=== PATIENT | male | born 1990 | race African-American/Black ===

== ENCOUNTER 2025-11-05 18:59 | Emergency (ER) | payer BC, SELFPAY ==
[2025-11-05 19:05] VITALS: BP 155/101
[2025-11-05 20:35] LABS: Urine Character Slightly Cloudy (Clear)
[2025-11-05 21:20] LABS: Urine Squamous Cell 0-2 /LPF (Few)
[2025-11-05 21:21] LABS: Urine Red Blood Cell 0-2 /HPF (0-2)
--- NOTE | 2025-11-05 22:12 | ED.GENMED ---
History of Present Illness
General
Chief Complaint: Male Genito-Urinary Symptoms
Source: patient
Exam Limitations: none
Time Seen by Provider: 11/05/25 20:40
Nursing documentation reviewed up to this point in time: agreed with
History of Present Illness
History of Present Illness:
Patient to the emergency department with complaint of burning with urination. Symptoms started approximately 3 days ago. He notes some penile discharge also. He is not sexually active. States partner is not having any symptoms. Brought self to
the emergency department for evaluation. He denies any fever or chills, nausea, vomiting, diarrhea.
Past History
Past History
ED Past Medical History: None
Review of Systems
Review of Systems
Allergies reviewed?: Yes
All Other Systems: ROS reviewed and negative except as documented in HPI and ROS
Constitutional: Reports no symptoms
EENT: Reports no symptoms
Respiratory: Reports no symptoms
Cardiac: Reports no symptoms
ABD/GI: Reports no symptoms
: Reports dysuria and discharge
Musculoskeletal: Reports no symptoms
Skin: Reports no symptoms
Neurological: Reports no symptoms
Psychiatric: Reports no symptoms
Phy Exam
General Physical Exam
General Presentation: well appearing and no apparent distress
General age: appears stated age
General Skin: warm and dry
General Habitus: normal
General Mental: alert
Gastrointestinal Exam
Gastrointestinal Exam: normal bowel sounds, non tender, soft, no organomegaly and non distended
Musculoskeletal Exam
Musculoskeletal Exam: full ROM
Skin Exam
Skin Exam: normal color, warm/dry and no rash
Psychiatric Exam
Psychiatric Exam: normal mood/affect
Course
Orders/Labs/Results
Orders:
Orders
11/05/25 20:25
Urinalysis Reflex To Culture Urgent
Date Specimen was Collected: 11/05/25
Time Specimen was Collected: 20:00
Urine Microscopic Reflex Cult Urgent
Chlamydia/GC by PCR Urgent
SHIRAZ Source: Urine
Specimen Description:
Source:: URINE
Date Specimen was Collected: 11/05/25
Time Specimen was Collected: 21:28
Urine Culture Urgent
SHIRAZ Source: U
Specimen Description:
Date Specimen was Collected: 11/05/25
Time Specimen was Collected: 20:00
11/05/25 21:24
Add On- LAB Urgent
Tests Added?: GC/Chlamydia - urine
11/05/25 21:28
Ceftriaxone Sodium [Rocephin] 500 mg IM NOW STA
Doxycycline [Vibramycin] 100 mg PO NOW STA
Abnormal Lab Results
11/05/25
20:25
Urine Ketones 3+ A
(Negative)
Urine Bilirubin 1+ A
(Negative)
Urine Urobilinogen 2+ A
(Neg - 1+)
Leukocyte Esterase Rfl 1+ A
(Negative)
Urine WBC (Reflex) 11-15 A /HPF
(0-5)
Urine Bacteria (Reflex) Moderate A
(Negative)
Urine Albumin (Reflex) 3+ A
(Neg - Trace)
Vital Signs
Initial and Last Documented VS:
Initial Vital Signs
Temp Pulse Resp BP Pulse Ox
98.5 F 124 18 155/101 100
11/05/25 19:05 11/05/25 19:05 11/05/25 19:05 11/05/25 19:05 11/05/25 19:05
Last Documented Vital Signs
Temp Pulse Resp BP Pulse Ox
98.5 F 124 18 155/101 100
11/05/25 19:05 11/05/25 19:05 11/05/25 19:05 11/05/25 19:05 11/05/25 19:05
*Pulse Oximetry
SaO2: 100
Oxygen Mode of Delivery: Room air
Patient hypoxic: no
*Critical Care Note
Total Time (30-74mins, 75-104mins- exclusive of procedures): Not Applicable
Update Note
Update Note:
Patient to the emergency department with complaint of burning with urination, penile discharge. Symptoms started approximately 3 days ago. UA results reviewed. +1 leukocytes 11-15 WBCs 0-2 squamous cells moderate bacteria noted. Due to report of
penile discharge, will give a dose of ceftriaxone in department. Given Rx for doxycycline 100 mg twice daily. Urine culture for GC chlamydia sent, results are pending. He will be discharged home. He was given instructions on signs and symptoms
to return to the emergency department and he is agreeable to this plan.
ED Attending Note
-
Portions of this chart may have been created with voice recognition software.� Occasional wrong word or��sound alike� substitutions may have occurred due to the inherent limitations of voice recognition software.
Discharge Plan
Departure
Patient Disposition: Home (Routine Discharge)
Date of Disposition: 11/05/25
Time of Disposition: 21:28
Patient with high blood pressure during this ER visit?: No
Condition: Good
Covid-19: Not Applicable
Discharge Problem:
UTI (urinary tract infection)
Instructions: Urinary tract infections in adults
Prescriptions:
New
doxycycline hyclate 100 mg capsule
100 mg PO BID Qty: 14 0RF
Referrals:
UNKNOWN - PT DOES,NOT KNOW [Family Provider]
Activity Restrictions/Additional Instructions:
Return to the emergency department for any changes in/worsening of your symptoms.
Interventions
Interventions:
*General Assessment Last Done: 11/05/25 21:45
*Neglect/Abuse Screening Last Done: 11/05/25 19:05
*ED COVID-19 Vaccine History Last Done: 11/05/25 21:45
*ED Influenza Vaccine History Last Done: 11/05/25 21:45
[facility] Risk Assessment Tool Last Done: 11/05/25 19:00
*Risk Screen - Suicide (C-SSRS) Last Done: 11/05/25 19:05
*Nursing Disposition Last Done: 11/05/25 22:36
ED-Male Genitourinary Assessment Last Done: 11/05/25 20:17
Discharge Date and Time
Discharge Date/Time: 11/05/25 22:38
Print Language: GRENADIAN
== END 2025-11-05 22:38 | disposition home or self-care (01) ==
LOC: EMR 18:59
PROVIDERS: Emergency Medicine; EMERGENCY PHYSICIAN Emergency Medicine
DX: N39.0 Urinary tract infection, site not specified (principal)
CPT/HCPCS: 99283; 81003; 81015; 87086; 87491; 87591

== ENCOUNTER 2025-11-06 02:54 | Emergency (ER) | payer SELFPAY ==
[2025-11-06 03:07] VITALS: BP 124/91
--- NOTE | 2025-11-06 03:09 | EDRN ---
Pt changing into paper scrubs and belongings being secured by security
--- NOTE | 2025-11-06 04:01 | ED.GENMED ---
History of Present Illness
General
Chief Complaint: Psychiatric Problem
Source: patient
Exam Limitations: none
Time Seen by Provider: 11/06/25 02:56
Nursing documentation reviewed up to this point in time: agreed with
History of Present Illness
History of Present Illness:
35-year-old male via EMS, for anxiety, for psychiatric evaluation lives in [facility] works at [employer] seen in the ER earlier today diagnosed with a UTI given antibiotics apparently left second visit was found outside brought here here he he
feels some anxiety not suicidal, states he would like to go to work in the morning,
Past History
Past History
ED Past Medical History: None
Phy Exam
Physical Exam
Physical Exam:
Physical Exam
General: Patient calm cooperative
Neck: No jaundice
Lungs: no acute respiratory distress.
Neuro: alert and oriented. no focal neurological deficits
Skin: no rash
Psychiatric: Calm cooperative not suicidal not hallucinating
Extremities: No cyanosis
Course
Orders/Labs/Results
Orders:
Orders
11/06/25 03:03
Crisis Consult Urgent
Reason for Consult: pt here due to 'manic episode' per pt
Vital Signs
Initial and Last Documented VS:
Initial Vital Signs
Temp Pulse Resp BP Pulse Ox
97.5 F 69 16 124/91 98
11/06/25 03:07 11/06/25 03:07 11/06/25 03:07 11/06/25 03:07 11/06/25 03:07
Last Documented Vital Signs
Temp Pulse Resp BP Pulse Ox
97.5 F 69 16 124/91 98
11/06/25 03:07 11/06/25 03:07 11/06/25 03:07 11/06/25 03:07 11/06/25 04:02
MDM/Problems Addressed
Differential Diagnosis Includes:
Mental illness social stressors
MDM/Problems Addressed:
Not homicidal not suicidal not hallucinating
Chronic conditions affecting care: Psychiatric illness
Acute Exacerbation and/or Progression of Chronic Illness: Psychiatric illness
*Pulse Oximetry
SaO2: 98
Oxygen Mode of Delivery: Room air
Patient hypoxic: no
*Critical Care Note
Total Time (30-74mins, 75-104mins- exclusive of procedures): Not Applicable
Update Note
Update Note:
Update patient no acute distress seen by crisis
ED Attending Note
-
Portions of this chart may have been created with voice recognition software.� Occasional wrong word or��sound alike� substitutions may have occurred due to the inherent limitations of voice recognition software.
Discharge Plan
Departure
Patient Disposition: Home (Routine Discharge)
Date of Disposition: 11/06/25
Time of Disposition: 04:21
Patient with high blood pressure during this ER visit?: No
Discharge Problem:
Anxiety
Instructions: Generalized Anxiety Disorder (DC)
Prescriptions:
No Action
doxycycline hyclate 100 mg capsule
100 mg PO BID Qty: 14 0RF
Interventions
Interventions:
*General Assessment Last Done: 11/06/25 02:57
*Neglect/Abuse Screening Last Done: 11/06/25 02:57
*ED COVID-19 Vaccine History Last Done: 11/06/25 02:57
*ED Influenza Vaccine History Last Done: 11/06/25 02:57
[facility] Fall Risk Assessment Tool Last Done: 11/06/25 03:05
*Risk Screen - Suicide (C-SSRS) Last Done: 11/06/25 02:57
Discharge Date and Time
Print Language: CHINESE
[2025-11-06 06:26] VITALS: BP 119/81
== END 2025-11-06 06:45 | disposition home or self-care (01) ==
LOC: EMR 02:54
PROVIDERS: EMERGENCY PHYSICIAN Emergency Medicine
DX: F41.9 Anxiety disorder, unspecified (principal)
CPT/HCPCS: 99282